=== PATIENT | female | born 1960 | race Caucasian/White ===

== ENCOUNTER → 2017-07-24 | Outpatient (CLI) | payer OTHER ==
[~2017-07-24] MED LIST: CYMBALTA60 MG; EFFEXOR XR150 MG; ESTROVEN REGU400 MCG; GLIPIZIDE ER10 MG; GLUCOPHAGE500 MG; LANTUSSOLASTAR; LIDODERM 5%1 PATCH; NEURONTIN600 MG; OMEPRAZOLE20 M2; ONE DAILY HEAL1 EACH; VITAMIN D-32000 UNIT
== END ==
LOC: M.MRI 07-17 15:29 → M.RAD 07:03 → M.MRI 07:30
DX: Z12.31 Encounter for screening mammogram for malignant neoplasm of breast (principal); G89.29 Other chronic pain; M54.6 Pain in thoracic spine; R07.89 Other chest pain; K76.0 Fatty (change of) liver, not elsewhere classified

== ENCOUNTER → 2017-07-28 | Outpatient (CLI) | payer OTHER | LOC: M.CT 18:00 | PROVIDERS: Internal Medicine | DX: R07.89 Other chest pain (principal); R07.81 Pleurodynia ==

== ENCOUNTER → 2018-09-07 | Outpatient (CLI) | payer OTHER | LOC: M.RAD 11:29 | DX: Z12.31 Encounter for screening mammogram for malignant neoplasm of breast (principal) ==

== ENCOUNTER → 2019-11-29 | Outpatient (CLI) | payer OTHER | LOC: M.CT 08:07 | DX: R82.998 Other abnormal findings in urine (principal); R82.90 Unspecified abnormal findings in urine; R35.0 Frequency of micturition; R07.81 Pleurodynia ==

== ENCOUNTER → 2019-12-25 | Outpatient (CLI) | payer OTHER | LOC: M.CT 12-20 11:00 → M.RAD 10:40 → M.CT 11:00 | PROVIDERS: ATTEND Internal Medicine | DX: Z12.31 Encounter for screening mammogram for malignant neoplasm of breast (principal); N63.31 Unspecified lump in axillary tail of the right breast; R07.81 Pleurodynia; R07.9 Chest pain, unspecified; R05 Cough ==

== ENCOUNTER → 2020-01-01 | Outpatient (CLI) | payer OTHER | LOC: M.RAD 12-26 11:45 | PROVIDERS: ATTEND Internal Medicine | DX: N63.10 Unspecified lump in the right breast, unspecified quadrant (principal) ==

== ENCOUNTER → 2020-06-12 | Outpatient (CLI) | payer OTHER | LOC: M.RAD 14:14 | PROVIDERS: ATTEND Internal Medicine | DX: M47.814 Spondylosis without myelopathy or radiculopathy, thoracic region (principal) ==

== ENCOUNTER → 2020-09-02 | Outpatient (CLI) | payer OTHER ==
[2020-09-02 14:45] LABS: ABSOLUTE BASOPHILS 0.1 thou/uL (0.0-0.2); ABSOLUTE EOSINOPHILS 0.1 thou/uL (0.0-0.7); ABSOLUTE LYMPHOCYTES 3.2 thou/uL (0.8-5.3); ABSOLUTE MONOCYTES 0.4 thou/uL (0.0-1.2); BASOPHILS 1.2 %; EOSINOPHILS 1.6 %; HEMATOCRIT 41.7 % (37.0-47.0); LYMPHOCYTES 56.4 %; MCH 28.6 pg (26.0-34.0); MCHC 33.6 g/dL (28.0-37.0); MCV 85.1 fL (80.0-100.0); MONOCYTES 6.3 %; MPV 8.1 fl. (7.2-11.1); NUCLEATED RBCS 0 /100WBC; PLATELET COUNT* 291 thou/uL (150-400); POLYS 34.5 %; RDW-CV 13.9 % (10.5-14.5); WBC 5.7 thou/uL (4.0-11.0)
[2020-09-02 14:55] LABS: CALCIUM 9.1 mg/dL (8.5-10.1); CREATININE 0.8 mg/dL (0.6-1.3); POTASSIUM 4.5 mmol/L (3.5-5.1)
[2020-09-02 14:59] LABS: ALBUMIN 4.2 g/dL (3.4-5.0); TOTAL BILIRUBIN 0.4 mg/dL (<0.1-1.0); TOTAL PROTEIN 7.6 g/dL (6.4-8.2)
== END ==
LOC: M.RAD 14:22
PROVIDERS: ATTEND Internal Medicine
DX: R07.89 Other chest pain (principal); M54.9 Dorsalgia, unspecified; R11.2 Nausea with vomiting, unspecified; E11.40 Type 2 diabetes mellitus with diabetic neuropathy, unspecified; Z79.4 Long term (current) use of insulin

== ENCOUNTER → 2020-09-30 | Outpatient (CLI) | payer OTHER | LOC: M.MRI 11:11 | PROVIDERS: ATTEND Nurse Practitioner | DX: M54.6 Pain in thoracic spine (principal); G89.29 Other chronic pain; R20.0 Anesthesia of skin; R20.2 Paresthesia of skin ==

== ENCOUNTER → 2020-10-05 | Outpatient (CLI) | payer OTHER ==
[~2020-10-05] MED LIST changes: -CYMBALTA60 MG; +CYMBALTA60 MG PO; -EFFEXOR XR150 MG; +EFFEXOR XR150 MG PO; +HUMALOG100 UNIT/1 PO; +LIPITOR40 MG PO; +OZEMPIC0.25 MG/0.
== END ==
LOC: M.PC 08:38
PROVIDERS: ATTEND Physical Medicine & Rehabilitation
DX: R07.89 Other chest pain (principal); M47.814 Spondylosis without myelopathy or radiculopathy, thoracic region

== ENCOUNTER → 2020-10-12 | Outpatient (CLI) | payer OTHER ==
[~2020-10-12] MED LIST changes: +NEURONTIN 300M300 M2 PO; +TRAMADOL 50 MG50 MG PO
== END | disposition home or self-care (01) ==
LOC: M.PC 09:31
PROVIDERS: ATTEND Physical Medicine & Rehabilitation
DX: R07.89 Other chest pain (principal); G58.0 Intercostal neuropathy; M47.894 Other spondylosis, thoracic region; E11.9 Type 2 diabetes mellitus without complications; K21.9 Gastro-esophageal reflux disease without esophagitis; F32.9 Major depressive disorder, single episode, unspecified; Z98.890 Other specified postprocedural states; Z79.899 Other long term (current) drug therapy; Z88.6 Allergy status to analgesic agent

== ENCOUNTER 2020-11-12 12:33 | Emergency (ER) | payer OTHER ==
[~2020-11-12] VITALS: Ht 167.6 cm; Wt 81.7 kg
[2020-11-12] MEDS ORDERED: NEURONTIN100 MG PO (12:42)
[2020-11-12] MEDS ORDERED: GLIPIZIDE 10 MG10 MG PO (12:42)
[2020-11-12] MEDS ORDERED: METFORMIN HCL1000 M1 PO (12:42)
[2020-11-12 14:09] LABS: ABSOLUTE BASOPHILS 0.1 thou/uL (0.0-0.2); ABSOLUTE MONOCYTES 0.4 thou/uL (0.0-1.2); BASOPHILS 0.9 %; EOSINOPHILS 0.4 %; HEMATOCRIT 40.1 % (37.0-47.0); HEMOGLOBIN 13.6 gm/dL (12.0-15.0); LYMPHOCYTES 23.6 %; MCHC 33.9 g/dL (28.0-37.0); MCV 85.6 fL (80.0-100.0); MONOCYTES 4.6 %; MPV 7.8 fl. (7.2-11.1); NUCLEATED RBCS 0 /100WBC; PLATELET COUNT* 272 thou/uL (150-400); POLYS 70.5 %; RBC 4.69 mil/uL (4.20-5.00); RDW-CV 14.1 % (10.5-14.5); WBC 8.5 thou/uL (4.0-11.0)
[2020-11-12 14:20] LABS: CALCIUM 9.6 mg/dL (8.5-10.1); CREATININE 0.7 mg/dL (0.6-1.3); POTASSIUM 4.5 mmol/L (3.5-5.1)
[2020-11-12 14:32] LABS: TOTAL BILIRUBIN 0.3 mg/dL (<0.1-1.0); TOTAL PROTEIN 7.7 g/dL (6.4-8.2)
[2020-11-12 14:38] LABS: URINE BILIRUBIN NEGATIVE (Negative); URINE BLOOD NEGATIVE (Negative); URINE CLARITY CLEAR; URINE COLOR YELLOW; URINE GLUCOSE-RANDOM NEGATIVE (Negative); URINE KETONES NEGATIVE (Negative); URINE LEUKOCYTES-REFLEX NEGATIVE (Negative); URINE NITRITE-REFLEX NEGATIVE (Negative); URINE PROTEIN NEGATIVE (Negative); URINE SPECIFIC GRAVITY 1.025 (1.005-1.030); URINE UROBILINOGEN 0.2 E.U./dl (0.2-1.0)
[2020-11-12] MEDS ORDERED: ZOFRAN ODT4 MG DISSOLVE (14:39)
[2020-11-12] MEDS ORDERED: MECLIZINE HCL25 M1 PO (14:39)
[2020-11-12 14:57] VITALS: BP 136/70
--- NOTE | 2020-11-12 15:25 | EKG ---
[place] [address] ELECTROCARDIOGRAM REPORT Name: RETANAHANNAH Edgar Room: [facility]#: [id number] Admission: 11/12/20 Attend Phys: Discharge: 11/12/20 Date of : 60 Date of Service: 11/12/20 1239 Report #: [id number] THIS REPORT FOR: //name// [facility] ED Test Date: 2020-11-12 Test Time: 12:39:09 Pat Name: HANNAH RETANA Department: Room: Gender: F [employer]: DSGregory : 1960 Requested By: Vance Hoover Order Number: [id number] MD: Yonny Wright Measurements Intervals [place] Rate: 89 P: 13 UT: 148 QRS: -36 QRSD: 91 T: 83 QT: 375 QTc: 457 Interpretive Statements Sinus rhythm Left axis deviation Low voltage, precordial leads Consider anterior infarct Nonspecific T abnormalities, lateral leads Compared to ECG 03/01/2011 12:19:31 Left-axis deviation now present Low QRS voltage now present Myocardial infarct finding now present T-wave abnormality now present Electronically Signed On 11-12-2020 15:25:47 CDT by Yonny Wright [email or web address] <ELECTRONICALLY SIGNED> By: Yonny Wright MD, [facility] 11/12/20 1525 1239 1239 Yonny Wright MD, [facility] /EPI
== END 2020-11-12 14:58 | disposition home or self-care (01) ==
LOC: M.ERS 12:33
PROVIDERS: Emergency Medicine Emergency Medical Services
DX: H81.10 Benign paroxysmal vertigo, unspecified ear (principal); R11.2 Nausea with vomiting, unspecified; E11.9 Type 2 diabetes mellitus without complications; K21.9 Gastro-esophageal reflux disease without esophagitis; Z88.5 Allergy status to narcotic agent; Z79.899 Other long term (current) drug therapy; Z90.710 Acquired absence of both cervix and uterus; Z98.890 Other specified postprocedural states

== ENCOUNTER → 2021-01-25 | Outpatient (CLI) | payer OTHER ==
[~2021-01-25] MED LIST changes: +GLIPIZIDE 10 MG10 MG PO; +MECLIZINE HCL25 M1 PO; +METFORMIN HCL1000 M1 PO; +NEURONTIN100 MG PO; +ZOFRAN ODT4 MG DISSOLVE
== END ==
LOC: M.RAD 11:42
PROVIDERS: ATTEND Internal Medicine Endocrinology, Diabetes & Metabolism
DX: Z12.31 Encounter for screening mammogram for malignant neoplasm of breast (principal)

== ENCOUNTER → 2021-06-28 | Outpatient (CLI) | payer OTHER | LOC: M.MRI 06-14 11:30 | PROVIDERS: ATTEND Family Medicine | DX: M25.78 Osteophyte, vertebrae (principal); M50.123 Cervical disc disorder at C6-C7 level with radiculopathy; R93.7 Abnormal findings on diagnostic imaging of other parts of musculoskeletal system ==